=== PATIENT | female | born 1945 | race Caucasian/White ===

== ENCOUNTER 2016-09-08 21:59 | Emergency (ER) | payer MEDICARE ==
[2012-04-15 06:46] VITALS: BMI 28.3
[2016-09-08 22:31] LABS: BASOPHILS 0.6 % (0-2); EOSINOPHILS 1.6 % (0-7); HEMATOCRIT 37.9 % (36.0-48.0); HEMOGLOBIN 12.8 g/dL (12-16); IMMATURE GRANULOCYTES 0.3 % (0-5); LYMPHOCYTES 38.7 % (15-50); MCHC 33.8 g/dL (31.0-37.0); MCV 94.8 fL (80.0-100.0); MEAN PLATELET VOLUME 11.4 fL (7.4-10.4); MONOCYTES 8.7 % (2-11); NEUTROPHILS 50.1 % (40-80); PLATELET COUNT 179 10x3/uL (130-400); RDW 13.8 % (11.5-14.5); WBC 6.9 10x3/uL (4.8-10.8)
[2016-09-08 22:36] LABS: APPEARANCE CLEAR (CLEAR); BILIRUBIN NEGATIVE (NEGATIVE); COLOR STRAW (YELLOW); GLUCOSE NEGATIVE (NEGATIVE); KETONE NEGATIVE (NEGATIVE); LEUKOCYTE ESTERASE NEGATIVE (NEGATIVE); NITRITE NEGATIVE (NEGATIVE); PROTEIN NEGATIVE (NEGATIVE); SPECIFIC GRAVITY 1.005 (1.005-1.020); UROBILINOGEN NORMAL (NORMAL)
[2016-09-08 22:37] LABS: BACTERIA NONE SEEN /hpf (NONE SEEN); EPITHELIAL CELLS 0-5 /hpf (0-5); RED CELLS - URINE 0-5 /hpf (0-5); WHITE CELLS - URINE 0-5 /hpf (0-5)
[2016-09-08 22:40] LABS: APTT 43.6 SECONDS (22.8-39.4); INR 0.95 (0.85-1.17); PROTIME 12.6 SECONDS (11.6-15.0)
[2016-09-08 22:44] LABS: ALBUMIN 3.5 g/dL (3.4-5.0); ANION GAP 13.6 mmol/L (8-16); BILIRUBIN - TOTAL 0.48 mg/dL (0.2-1.3); CALCIUM 8.5 mg/dL (8.5-10.1); CARBON DIOXIDE 24.4 mmol/L (21.0-32.0); CREATININE - SERUM 0.9 mg/dL (0.6-1.3); PROTEIN - SERUM 7.1 g/dL (6.4-8.2)
== END 2016-09-09 00:26 | disposition home or self-care (01) ==
LOC: D.ER 21:59
PROVIDERS: Emergency Medicine
DX: R41.0 Disorientation, unspecified (principal); R00.1 Bradycardia, unspecified

== ENCOUNTER → 2016-09-11 10:11 | Outpatient (CLI) | payer MEDICARE ==
[2012-04-15 06:46] VITALS: BMI 28.3
== END | disposition home or self-care (01) ==
LOC: D.MRI 10:11
DX: R41.82 Altered mental status, unspecified (principal)

== ENCOUNTER 2019-03-11 13:26 | Emergency (ER) | payer MEDICARE ==
[~2019-03-11] VITALS: Ht 165.1 cm; Wt 84.1 kg
[2019-03-11 13:36] VITALS: Ht 165.1 cm; Wt 84.1 kg
[2019-03-11 14:22] LABS: BASOPHILS 0.4 % (0-2); EOSINOPHILS 2.2 % (0-7); HEMATOCRIT 41.7 % (36.0-48.0); HEMOGLOBIN 13.7 g/dL (12-16); IMMATURE GRANULOCYTES 0.3 % (0-5); LYMPHOCYTES 41.8 % (15-50); MCHC 32.9 g/dL (31.0-37.0); MCV 94.3 fL (80.0-100.0); MEAN PLATELET VOLUME 11.5 fL (7.4-10.4); MONOCYTES 9.6 % (2-11); NEUTROPHILS 45.7 % (40-80); PLATELET COUNT 197 10x3/uL (130-400); RBC 4.42 10x6/uL (4.00-5.40); RDW 14.5 % (11.5-14.5); WBC 7.3 10x3/uL (4.8-10.8)
[2019-03-11 14:35] LABS: INR 0.93 (0.85-1.17); PROTIME 12.4 SECONDS (11.6-15.0)
[2019-03-11 14:36] LABS: CALC OSMOLALITY 283 mosm/kg (275-300); CALCIUM 8.9 mg/dL (8.5-10.1); CARBON DIOXIDE 29.7 mmol/L (21.0-32.0); CHLORIDE - SERUM 104 mmol/L (98-107); CREATININE - SERUM 0.9 mg/dL (0.6-1.3); GLUCOSE 86 mg/dL (74-106); POTASSIUM - SERUM 3.9 mmol/L (3.5-5.1); SODIUM 143 mmol/L (136-145); UREA NITROGEN 13 mg/dL (7-18); eGFR NON AFRICAN AMERICAN 65 mL/min (90-120)
[2019-03-11 14:53] LABS: ALBUMIN 3.9 g/dL (3.4-5.0); ALKALINE PHOSPHATASE 126 U/L (46-116); ALT (SGPT) 37 U/L (10-68); BILIRUBIN - TOTAL 0.59 mg/dL (0.2-1.3); CREATINE KINASE 103 UL (21-215); MAGNESIUM - SERUM 1.8 mg/dL (1.8-2.4); PROTEIN - SERUM 7.5 g/dL (6.4-8.2); TROPONIN-I < 0.017 ng/mL (0.000-0.060)
[2019-03-11] MEDS ORDERED: FOLIC ACID1 MG PO (15:25)
[2019-03-11] MEDS ORDERED: TIROSINT50 MCG PO (15:25)
[2019-03-11] MEDS ORDERED: NEXIUM40 MG PO (15:25)
[2019-03-11] MEDS ORDERED: COLCRYS0.6 MG PO (15:26)
[2019-03-11] MEDS ORDERED: METHO (15:26)
[2019-03-11] MEDS ORDERED: CYCLOBENZAPRINE5 MG PO (15:26)
[2019-03-11] MEDS ORDERED: HYDROCHLOROTH12.5 M1 PO (15:27)
[2019-03-11] MEDS ORDERED: ANUSOL-HC25 MG RC (15:28)
[2019-03-11] MEDS ORDERED: ESTRACE 0.0142.5 GM VG (15:28)
[2019-03-11] MEDS ORDERED: MERIBIN5 MG PO (15:29)
[2019-03-11] MEDS ORDERED: FEXOFENADINE HC60 MG PO (15:29)
[2019-03-11] MEDS ORDERED: MULTI-DAY VITAM1 TAB PO (15:30)
[2019-03-11] MEDS ORDERED: ESTROVEN (15:30)
[2019-03-11 16:14] VITALS: BP 155/78
== END 2019-03-11 16:37 | disposition home or self-care (01) ==
LOC: D.ER 13:26
PROVIDERS: Emergency Medicine
DX: M79.602 Pain in left arm (principal); R07.9 Chest pain, unspecified; E07.9 Disorder of thyroid, unspecified; R01.1 Cardiac murmur, unspecified

== ENCOUNTER → 2019-04-12 12:44 | Outpatient (CLI) | payer MEDICARE ==
[2019-03-11 13:36] VITALS: BMI 30.8
--- NOTE | 2019-04-14 13:11 | ST ---
PATIENT:KAREN FRANCO MEDICAL RECORD: [id number] SEX: F LOCATION:[facility] ORDER #: ADMISSION DATE: 04/12/19 AGE OF PATIENT: 73 REFERRING PHYSICIAN: INTERPRETING PHYSICIAN: YUNIOR RODRIGUEZ MD DATE OF SERVICE: 04/12/2019 PROCEDURE: Treadmill stress test. Baseline ECG is normal. Exercised for 6 minutes 43 seconds on Jeff protocol. Maximum heart rate of 149 beats per minute, greater than 100% of max predicted. No ECG changes for ischemia. No symptoms of ischemia. Normal blood pressure response to exercise. No arrhythmias noted. Good exercise tolerance for age. TRANSINT:[id number] Voice Confirmation ID: [id number] DOCUMENT ID: [id number] YUNIOR RODRIGUEZ MD at 1311 CC: [id number] DICTATION DATE: 04/13/19 1304 TECHNOLOGY DIRECTOR: 04/14/19 0805 DEP CLI 04/12/19 [id number] [place] [address]
== END | disposition home or self-care (01) ==
LOC: D.HCCARDIO 12:44
PROVIDERS: ATTEND Internal Medicine Interventional Cardiology
DX: I20.9 Angina pectoris, unspecified (principal)

== ENCOUNTER 2019-07-01 05:27 | Day surgery (SDC) | payer MEDICARE ==
[2019-06-29 11:52] LABS: BASOPHILS 0.3 % (0-2); EOSINOPHILS 1.5 % (0-7); HEMATOCRIT 40.9 % (36.0-48.0); HEMOGLOBIN 13.1 g/dL (12-16); IMMATURE GRANULOCYTES 0.3 % (0-5); LYMPHOCYTES 42.4 % (15-50); MCH 31.7 pg (26.0-34.0); MEAN PLATELET VOLUME 11.2 fL (7.4-10.4); MONOCYTES 6.7 % (2-11); NEUTROPHILS 48.8 % (40-80); PLATELET COUNT 181 10x3/uL (130-400); RBC 4.13 10x6/uL (4.00-5.40); RDW 13.7 % (11.5-14.5); WBC 6.2 10x3/uL (4.8-10.8)
[2019-06-29 11:54] LABS: ANION GAP 10.3 mmol/L (8-16); CALCIUM 8.7 mg/dL (8.5-10.1); CARBON DIOXIDE 29.7 mmol/L (21.0-32.0); CREATININE - SERUM 1.1 mg/dL (0.6-1.3)
[~2019-07-01] VITALS: Ht 165.1 cm; Wt 85.3 kg
--- NOTE | ~2019-07-01 | OP ---
PATIENT NAME: KAREN FRANCO MEDICAL RECORD: [id number] :47 LOCATION:[facility] ADMISSION DATE: SURGEON: KATE HILLIARD MD DATE OF OPERATION: 07/01/2019 PREOPERATIVE DIAGNOSIS: Bleeding internal hemorrhoids. POSTOPERATIVE DIAGNOSIS: Bleeding internal hemorrhoids. PROCEDURE: PPH stapled hemorrhoidectomy. SURGEON: Kate Hilliard MD REPORT OF PROCEDURE: The patient was placed in lithotomy position and the perianal region was prepped and draped in sterile fashion. An anoscope was inserted and 360 degree inspection was performed showing hemorrhoids present just in all 3 columns. These were mixed hemorrhoids extending out to external. There was no sign of any active bleeding currently and there are no masses present. The PPH anoscope was inserted and sutured down on all 4 sides with interrupted 3-0 silks. A 2-0 Prolene was used to make a pursestring proximal to the dentate line. We then inserted the PPH stapler and fired the stapler without complication. At the conclusion of this, we had a large collection of tissue present, but it was not a complete ring. I inspected the anus. The stapler did not fire across the most posterior aspect of the patient's anus and there was a little bleeding from there. The remainder of the staple line was intact with no signs of any active bleeding. I oversewed the staple line edges; however, there was some bleeding with a 2-0 chromic. This concluded any bleeding that was found. We then irrigated out the anus with sterile saline. At the conclusion of the case, we removed the PPH anoscope and could see that the excess tissue had been pulled back into the anal vault. We then inserted a piece of Gelfoam dipped in [place] and covered the anus with 4 x 4's. COMPLICATIONS: None. CONDITION: Stable. ANESTHESIA: General endotracheal. BLOOD LOSS: Minimal. TRANSINT:[id number] Voice Confirmation ID: [id number] DOCUMENT ID: [id number] KATE HILLIARD MD CC: SEAN ISBELL MD [id number] DICTATION DATE: 07/01/19 0825 LEG BREAKER: 07/01/19 1423 [facility] 07/01/19 [id number] [place] [address]
[~2019-07-01 05:27] MED LIST: ANUSOL-HC25 MG RC; COLCRYS0.6 MG PO; CYCLOBENZAPRINE5 MG PO; ESTRACE 0.0142.5 GM VG; ESTROVEN; FEXOFENADINE HC60 MG PO; FOLIC ACID1 MG PO; HYDROCHLOROTH12.5 M1 PO; HYDROXYCHLOROQ200 MG PO; MERIBIN5 MG PO; METHO; METHOTREXATE2.5 MG PO; MULTI-DAY VITAM1 TAB PO; NEXIUM40 MG PO; TIROSINT50 MCG PO; VOLTAREN100 GM TOPICAL
[2019-07-01] MEDS ORDERED: BENADRYL25 MG PO (06:08)
[2019-07-01 06:15] VITALS: BP 128/63; Ht 165.1 cm; Wt 85.3 kg
[2019-07-01] MEDS ORDERED: HYDROCODON-ACE1 EA10 PO (08:21)
--- NOTE | 2019-07-01 11:13 | NUR ---
0924-REPORTS NAUSEA WITHOUT VOMITING. PER MD ORDERS ADMINISTERED ZOFRAN 4MG IVP. VSS.
--- NOTE | 2019-07-01 11:15 | NUR ---
0940-REPORTS NAUSEA HAS SUBSIDED. VSS. REPORTS SLIGHT DISCOMFORT/PRESSURE TO SURGICAL SITE. TOLERATING WATER.
--- NOTE | 2019-07-01 11:16 | NUR ---
1011-REMOVED IV WITH CATH INTACT,DISPOSED INTO SHARPS,COVERED WITH MEDIPORE TAPE. REVIEWED POST OP INSTRUCTIONS ANDFOLLOW UP APPOINTMENT. VERBALIZED UNDERSTANDING.
--- NOTE | 2019-07-01 11:17 | NUR ---
1020-PT DRESSED. ESCORTED OUT VIA W/C WITH SPOUSE AWAITING TO DRIVE HOME.
== END 2019-07-01 10:20 | disposition home or self-care (01) ==
LOC: D.OPS 05:27 → D.PAN 07:30 → D.OPS 10:20
PROVIDERS: ATTEND Surgery
DX: K64.8 Other hemorrhoids (principal); K21.9 Gastro-esophageal reflux disease without esophagitis; E07.9 Disorder of thyroid, unspecified

== ENCOUNTER 2019-12-01 17:42 | Emergency (ER) | payer MEDICARE ==
[~2019-12-01] VITALS: Ht 165.1 cm; Wt 86.4 kg
[~2019-12-01 17:42] MED LIST changes: +BENADRYL25 MG PO; +HYDROCODON-ACE1 EA10 PO
[2019-12-01 18:08] VITALS: BP 155/78; Ht 165.1 cm; Wt 86.4 kg
== END 2019-12-01 20:29 | disposition home or self-care (01) ==
LOC: D.ER 17:42
DX: S61.214A Laceration without foreign body of right ring finger without damage to nail, initial encounter (principal); W26.9XXA Contact with unspecified sharp object(s), initial encounter; Y93.9 Activity, unspecified; Y92.9 Unspecified place or not applicable; K21.9 Gastro-esophageal reflux disease without esophagitis; S69.91XA Unspecified injury of right wrist, hand and finger(s), initial encounter